=== PATIENT | female | born 1975 | race Two or more races ===

== ENCOUNTER → 2017-10-14 | Outpatient (CLI) | payer OTHER ==
[~2017-10-14] VITALS: Ht 152.4 cm; Wt 102.1 kg
[~2017-10-14] MED LIST: ENALAPRIL MALEA10 MG
== END | disposition home or self-care (01) ==
LOC: PPHC 10:26
DX: R05 Cough (principal); R51 Headache; J11.1 Influenza due to unidentified influenza virus with other respiratory manifestations

== ENCOUNTER 2018-04-27 09:50 | Emergency (ER) | payer OTHER ==
[~2018-04-27] VITALS: Ht 162.6 cm; Wt 102.5 kg
[2018-04-27] MEDS ORDERED: HYZAAR 100-251 EACH PO (10:12)
== END 2018-04-27 14:51 | disposition home or self-care (01) ==
LOC: ER 09:50
DX: S40.012A Contusion of left shoulder, initial encounter (principal); S50.01XA Contusion of right elbow, initial encounter; W18.39XA Other fall on same level, initial encounter; Y93.89 Activity, other specified; Y92.89 Other specified places as the place of occurrence of the external cause; Y99.8 Other external cause status

== ENCOUNTER 2020-03-31 07:13 | Inpatient (IN) | payer OTHER ==
[~2020-03-31] VITALS: Ht 162.6 cm; Wt 89.8 kg
[~2020-03-31 07:13] MED LIST changes: +HYZAAR 100-251 EACH PO
[2020-04-02] MEDS ORDERED: CARAFATE1 GM PO (10:31)
[2020-04-02] MEDS ORDERED: PANTOPRAZOLE SO40 MG PO (10:31)
== END 2020-04-04 09:47 | disposition home or self-care (01) | DRG 743 ==
LOC: O/R 04-02 05:10 → OB/GYN 04-02 05:10 → SURH 04-02 07:00 → O/R 04-02 10:00 → OB/GYN 04-02 10:49
PROVIDERS: ADMIT Obstetrics & Gynecology; ATTEND Obstetrics & Gynecology
PROC: 0UT10ZZ Resection of Left Ovary, Open Approach (ICD-10-PCS; 2020-04-02)
PROC: 0UT60ZZ Resection of Left Fallopian Tube, Open Approach (ICD-10-PCS; principal; 2020-04-02 07:00)
DX: N83.12 Corpus luteum cyst of left ovary (principal); Q50.6 Other congenital malformations of fallopian tube and broad ligament

== ENCOUNTER 2022-12-22 06:55 | Day surgery (SDC) | payer OTHER ==
[~2022-12-22] VITALS: Ht 162.6 cm; Wt 87.1 kg
[~2022-12-22 06:55] MED LIST changes: +CARAFATE1 GM PO; +PANTOPRAZOLE SO40 MG PO
== END 2022-12-22 13:20 | disposition home or self-care (01) ==
LOC: U 06:55 → CIR.AMB 06:55
PROVIDERS: ATTEND Obstetrics & Gynecology
DX: R87.612 Low grade squamous intraepithelial lesion on cytologic smear of cervix (LGSIL) (principal); I10 Essential (primary) hypertension; Z20.822 Contact with and (suspected) exposure to COVID-19